=== PATIENT | male | born 1995 | race African-American/Black ===

== ENCOUNTER 2017-01-30 12:02 | Emergency (ER) | payer SELFPAY | END 2017-01-30 16:00 | disposition home or self-care (01) | LOC: D.ER 12:02 | DX: S62.306A Unspecified fracture of fifth metacarpal bone, right hand, initial encounter for closed fracture (principal); W19.XXXA Unspecified fall, initial encounter; Y93.89 Activity, other specified; Y92.89 Other specified places as the place of occurrence of the external cause; F17.200 Nicotine dependence, unspecified, uncomplicated ==

== ENCOUNTER 2017-03-01 09:00 | Day surgery (SDC) | payer MEDICAID | END 2017-03-01 23:59 | disposition home or self-care (01) | LOC: D.OPS 09:00 | DX: S62.316A Displaced fracture of base of fifth metacarpal bone, right hand, initial encounter for closed fracture (principal); Z01.810 Encounter for preprocedural cardiovascular examination; Z01.811 Encounter for preprocedural respiratory examination; Z01.812 Encounter for preprocedural laboratory examination; Z53.9 Procedure and treatment not carried out, unspecified reason ==

== ENCOUNTER 2017-03-15 06:35 | Day surgery (SDC) | payer MEDICAID ==
[2017-03-15 08:05] VITALS: BP 101/59; BMI 20.4
[2017-03-15] MEDS ORDERED: DURICEF500 MG PO (11:01)
[2017-03-15] MEDS ORDERED: PERCOCET 7.5/321 TAB PO (11:01)
--- NOTE | 2017-03-15 12:20 | NUR ---
CONSULTED ANESTHESIA REGARDING BRADYCARDIA. DR. LUCIO ORDERED ROBINOL 0.4MG/2ML X1 FOR BRADYCARDIA BELOW 40BPM. GAVE ROBINOL 0.4MG/2ML AT 1118. WILL CONTINUE TO MONITOR. BASELINE HEART RATE WAS 60 BPM.
--- NOTE | 2017-03-15 14:06 | NUR ---
1215 IV DC WITH CATHER TIP INTACT
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
== END 2017-03-15 12:30 | disposition home or self-care (01) ==
LOC: D.OPS 06:35 → D.PAN 09:00 → D.OPS 12:30
DX: S62.336A Displaced fracture of neck of fifth metacarpal bone, right hand, initial encounter for closed fracture (principal); Z01.812 Encounter for preprocedural laboratory examination; W22.8XXA Striking against or struck by other objects, initial encounter